=== PATIENT | male | born 1995 | race African-American/Black ===

== ENCOUNTER 2017-05-14 10:30 | Emergency (ER) | payer SELFPAY ==
[2017-05-14 10:35] VITALS: BP 119/58; BMI 19.8
[2017-05-14] MEDS ORDERED: TORADOL 60 MG VIAL IM ONE (12:17)
--- NOTE | 2017-05-14 12:18 | DR.GENAD ---
HPI - PCP Primary Care Physician: JUAN - HPI Comment HPI Comment: PATIENT LIFT HEAVY BOXEX AT WORK. PAIN WORSE TODAY. NO FEVER. NO HISTORY OF ARTHRITIS. - Complaint/Symptoms Chief Complaint Doctors Comments: PAIN RIGHT SHOULDER FOR 2 DAYS AND LOWER BACK PAIN FOR 3 DAYS. Chief Complaint:: PT. C/O RIGHT SHOULDER PAIN X 2 WEEKS AND LOWER BACK PAIN X 2- 3 DAYS. PT. STATES HE WORKS AT [employer] AND DOES A LOT OF HEAVY LIFTING. - Nurses notes reviewed Nurses Notes Review: Yes - Source History Provided: Patient - Mode of Arrival Mode of Arrival: Ambulatory - Timing Onset of Chief Complaint: 05/11/17 Came on: Suddenly - Duration Duration: Constant Duration: Days - Severity Severity: Moderate PMH - PMH Past Medical History: No Past Surgical History: Yes Surgical History: Other Past Surgical History Comment: UMBILICIAL HERNIA - Family History History of Family Medical Conditions: No - Social History Does patient currently use any type of tobacco product: Yes Have you used tobacco products in the last 12 months: Yes Type of Tobacco Use: Cigarettes How many years tobacco product used: 8 Does any household member use tobacco: Yes Alcohol Use: None Do you use any recreational Drugs:: No Lives With: Significant Other Lives Where: Home - infectious screening In the last 2 months have you had wt loss of >10#?: NO Have you had fever, night sweats or hemotysis?: No Have you traveled outside the country in the last 6 months?: No Isolation: Standard ROS - Review of Systems Constitutional: No Symptoms Reported Eyes: No Symptoms Reported ENTM: No Symptoms Reported Respiratoy: No Symptoms Reported Cardiovascular: No Symptoms Reported Gastrointestinal/Abdominal: No Symptoms Reported Genitourinary: No Symptoms Reported Neurological: No Symptoms Reported Musculoskeletal: Back Pain, Back, Shoulder (RIGHT SHOULDER PAIN.) Integumentary: No Symptoms Reported Hematologic/Lymphatic: No Symptoms Reported Endocrine: No Symptoms Reported All Other Systems: Reviewed and Negative PE - Vital Signs Vitals: Temperature 98.6 F Pulse Rate 61 Respiratory Rate 17 Blood Pressure 119/58 O2 Sat by Pulse Oximetry 97 - General Limitations: No Limitations General Appearance: Alert - Head Head Exam: Normal Inspection - Eyes Eye exam: Normal Appearance - ENT ENT Exam: Normal External Ear Exam TM/Canal Exam: Bilateral Normal Nose Exam: Normal Nose Exam Mouth Exam: Normal Inspection Throat Exam: Normal Inspection - Neck Neck Exam: Trachea Midline - Chest Chest Inspection: Symmetric Chest Wall Rise - Respiratory Respiratory Exam: Normal Lung Sounds Bilat Respiratory Exam: Bilateral Clear to Auscultation - Cardiovascular Cardiovascular Exam: Regular Rate, Normal Rhythm, Normal Heart Sounds - Abdominal Exam Abdominal Exam: Normal Bowel Sounds, Soft. negative: Tenderness - Extremities Extremities Exam: Tenderness (RIGHT SHOULDER TENDER. MAGDI WITH PSIN) - Back Back Exam: Paraspinal Tenderness (LOWER BACK) - Neurologic Neurological Exam: Alert, Oriented X3 - Psychiatric Psychiatric Exam: Normal Affect, Normal Mood - Skin Skin Exam: Normal Color MDM - Additional Information Additional Information Obtained From: Family - Differential Diagnosis Differential Diagnosis: SPRAIN, STRAIN, FRACTURE RT SHOULDER AND LOWER BACK. Course - Treatment Treatment: SEE ORDERS. IM TORADOL IN ED. - Reevaluation 1st: Improved - Education/Counseling Education/Counseling: Patient, Family, Education Educated On: Treatment, Diagnosis, Needs for Follow Up [facility] - XRAY XRAY Interpreted by: Radiologist XRAY Findings: REPORT DISCUSS WITH PATIENT AND FAMILY. - Diagnosis Discharge Problem: Sprain of shoulder, right Qualifiers: Encounter type: initial encounter Shoulder sprain type: unspecified sprain Qualified Code(s): S43.401A - Unspecified sprain of right shoulder joint, initial encounter Lumbosacral strain Qualifiers: Encounter type: initial encounter Qualified Code(s): S39.012A - Strain of muscle, fascia and tendon of lower back, initial encounter - Discharge Plan Disposition: 01 HOME, SELF-CARE Condition: Stable Prescriptions: Cyclobenzaprine HCl [FLEXERIL 10 MG *] 10 mg PO TID PRN #20 tab PRN Reason: Ibuprofen [MOTRIN TAB 800 MG *] 800 mg PO Q8H PRN #30 tab PRN Reason: Pain/Inflammation Ranitidine HCl [ZANTAC TAB 150 MG *] 150 mg PO BID #20 tab - Follow ups/Referrals Follow ups/Referrals: NFD,None [Primary Care Provider] - 3 days - Instructions Instructions: Shoulder Sprain, Musculoskeletal Pain, Back Pain, Adult, Easy-to- Read Additional Instructions: RETURN TO ED IF WORSE.
[2017-05-14] MEDS ORDERED: TORADOL 60 MG VIAL ONE (12:28)
--- NOTE | 2017-05-14 16:04 | RAD ---
History: Low back pain for 4 days Study: AP and lateral and both obliques and lateral spot view of the lumbar spine Comparison: None Findings: There is normal curvature and alignment without fracture or compression or disc space narro wing or osteophyte formation. The facets and sacroiliac joints are unremarkable. Impression: Negative Reported By:
--- NOTE | 2017-05-14 16:08 | RAD ---
HISTORY: Lifting injury Study: Right shoulder internal, external, Y-view Comparison: Poor none Findings: The clavicle, AC joint, scapula, right upper ribs, glenohumeral joint, and proximal humerus are intac t. IMPRESSION: No significant abnormality identified Reported By:
== END 2017-05-14 14:12 | disposition home or self-care (01) ==
LOC: ER 10:39
DX: S43.401A Unspecified sprain of right shoulder joint, initial encounter (principal); S39.012A Strain of muscle, fascia and tendon of lower back, initial encounter; X50.0XXA Overexertion from strenuous movement or load, initial encounter; Y92.69 Other specified industrial and construction area as the place of occurrence of the external cause
CPT/HCPCS: 72110; 73030; 96372; 99282; J1885

== ENCOUNTER 2017-08-22 15:00 | Emergency (ER) | payer SELFPAY ==
[2017-08-22 15:07] VITALS: BP 90/66; BMI 22.9
--- NOTE | 2017-08-22 17:30 | DR.GENAD ---
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 He admits to muscle soreness. Chief Complaint:: Patient c/o muscle pain around shoulders and upper chest. Patient states he thinks he pulled some muscles and it has gotten worse over the last two weeks. Also c/o night sweats. Self Treatment fo Chief Complaint: ibpurofen - Source History Provided: Patient - Mode of Arrival Mode of Arrival: Ambulatory - Timing Onset of Chief Complaint: 08/09/17 PMH - PMH Past Medical History: No Past Surgical History: Yes Surgical History: Other - Family History History of Family Medical Conditions: Yes Family Medical History: Diabetes Mellitus, [place], Hypertension - Social History Does patient currently use any type of tobacco product: Yes Have you used tobacco products in the last 12 months: Yes Type of Tobacco Use: Cigarettes How many years tobacco product used: 5 Does any household member use tobacco: No Do you use any recreational Drugs:: No Lives With: Family Lives Where: Home - infectious screening In the last 2 months have you had wt loss of >10#?: NO Have you had fever, night sweats or hemotysis?: Yes Have you traveled outside the country in the last 6 months?: No Isolation: Standard ROS - Review of Systems Eyes: No Symptoms Reported ENTM: No Symptoms Reported Respiratoy: No Symptoms Reported Cardiovascular: No Symptoms Reported Gastrointestinal/Abdominal: No Symptoms Reported Genitourinary: No Symptoms Reported Neurological: No Symptoms Reported Musculoskeletal: No Symptoms Reported Integumentary: No Symptoms Reported Hematologic/Lymphatic: No Symptoms Reported Endocrine: No Symptoms Reported Psychiatric: No Symptoms Reported All Other Systems: Reviewed and Negative PE - Vital Signs Vitals: Temperature 99.2 F Pulse Rate 94 Respiratory Rate 18 Blood Pressure 90/66 O2 Sat by Pulse Oximetry 97 - General General Appearance: Alert, In No Apparent Distress - Head Head Exam: Normal Inspection, Atraumatic - Eyes Eye exam: Normal Appearance, PERRL, EOMI - ENT ENT Exam: Normal Exam External Ear Exam: Normal External Inspection TM/Canal Exam: Bilateral Normal Nose Exam: Normal Nose Exam Mouth Exam: Normal Inspection Throat Exam: Normal Inspection - Neck Neck Exam: Normal Inspection, Full ROM - Chest Chest Inspection: Normal Inspection - Respiratory Respiratory Exam: Normal Lung Sounds Bilat Respiratory Exam: Bilateral Clear to Auscultation - Cardiovascular Cardiovascular Exam: Regular Rate, Normal Rhythm - Abdominal Exam Abdominal Exam: Normal Inspection, Normal Bowel Sounds Abdominal Tenderness: negative: RUQ, RLQ, LUQ, LLQ, Epigastrium, Suprapubic, Diffuse, Mild, Moderate, Severe, Other - Extremities Extremities Exam: Normal Inspection - Back Back Exam: Normal Inspection, Full ROM - Neurologic Neurological Exam: Alert, Oriented X3, CN II-XII Intact - Psychiatric Psychiatric Exam: Normal Affect - Skin Skin Exam: Warm, Dry, Intact - Diagnosis Discharge Problem: Muscle soreness - Discharge Plan Condition: Stable - Follow ups/Referrals Follow ups/Referrals: NFD,None [Primary Care Provider] - 3 days - Instructions
== END 2017-08-22 17:35 | disposition home or self-care (01) ==
LOC: ER 15:11
DX: M79.1 Myalgia (principal)
CPT/HCPCS: 99281